=== PATIENT | female | born 1940 | race Hispanic/Latino ===

== ENCOUNTER 2020-05-30 00:19 | Outpatient (CLI) | payer MEDICARE, MEDICAID, SELFPAY ==
[2020-05-30 18:50] LABS: SARS-CoV-2 RNA PCR Negative
== END 2020-05-30 00:20 | disposition home or self-care (01) ==
LOC: ANHCOVIDDT 00:20
PROVIDERS: Visit Provider Specialist
DX: Z01.812 Encounter for preprocedural laboratory examination (principal); Z20.822 Contact with and (suspected) exposure to COVID-19
CPT/HCPCS: C9803; U0003

== ENCOUNTER 2020-06-02 00:12 | Day surgery (SDC) | payer MEDICARE, MEDICAID, SELFPAY ==
[2020-06-02] VITALS (8 sets, daily range): BP systolic 122–158; BP diastolic 53–80; PULSE 60–68; RESP 13–14; TEMP 36.4; O2SAT 97–98; BMI 32.4
--- NOTE | 2020-06-02 13:36 | SUR.PREOP ---
Patient arrives to [facility] via wheelchair from registration. Rod Finisher Radha with Status services used to obtain consent, patient's health history, and inform patient of plan of care. Patient verbalizes understanding, via sort operations supervisor, of procedure and plan of care. VS obtained. Site prepped per protocol. Karlos from [employer] at bedside to assess pacemaker. Patient verbalizes understanding. Will continue to monitor.
[2020-06-02 13:38] LABS: Basophils Absolute Auto 0.1 K/mm3 (0.0-0.1); Basophils Percent Auto 1.2 % (0.2-1.2); Eosinophils Absolute Auto 0.2 K/mm3 (0-0.3); Eosinophils Percent Auto 3.5 % (0-4.4); Hematocrit 44.9 % (37.0-47.0); Hemoglobin 14.7 g/dL (12.0-15.0); Immature Granulocyte Absolute 0.02 K/mm3 (0.00-0.031); Immature Granulocyte Percent A 0.3 % (0-0.5); Lymphocytes Absolute Auto 2.87 K/mm3 (0.9-3.2); Lymphocytes Percent Auto 41.8 % (18.3-44.2); Mean Corpuscular HGB Conc 32.7 g/dl (32-36); Mean Corpuscular Hemoglobin 30.1 pg (26-34); Monocytes Absolute Auto 0.4 K/mm3 (0.1-0.6); Neutrophils Absolute Auto 3.3 K/mm3 (1.3-6.7); Neutrophils Percent Auto 47.2 % (45.5-73.1); Platelet Count Result 209 k/mm3 (150-375); Red Blood Count 4.88 M/mm3 (4.2-5.4); Red Cell Distribution Width 13.5 % (11.5-14.5); White Blood Count 6.9 K/mm3 (4.5-10.0)
[2020-06-02 13:46] LABS: Prothrombin Time 13.7 Seconds (11.1-14.7)
[2020-06-02 13:47] LABS: Anion Gap 8 mmol/L (8-16); Blood Urea Nitrogen 18 mg/dL (7-17); Calcium 9.2 mg/dL (8.4-10.2); Carbon Dioxide 30 mmol/L (22-30); Chloride 103 mmol/L (98-107); Estimated Glomerular Filt Rate > 60; Glucose 98 mg/dL (65-105); Potassium 3.9 mmol/L (3.4-5.0); Sodium 141 mmol/L (137-145)
--- NOTE | 2020-06-02 13:48 | SUR.PREOP ---
H & P noted to be outdated (from 09/2017). Dr. Mackey notified and states he will complete an updated H & P today, prior to procedure this afternoon. Will continue to monitor.
--- NOTE | 2020-06-02 13:56 | PM.IMHP ---
H&P: HPI History of Present Illness Date/Time: 06/02/20 13:56 80 years old Citizen Of [place]-speaking lady with history of hypertension dyslipidemia sick sinus syndrome, is here for pacemaker generator change, she has history of pacemaker for sick sinus syndrome, she is not pacer dependent, was noted to have pacemaker at end of life, she will be admitted to the hospital for elective placement of new generator Chief Complaint: Fatigue Narrative: Kathryn Vera is a 80 year old female Meds Home Medications and Allergies Home Medications Medication Instructions Recorded Confirmed Type No Home Medications 06/02/20 06/02/20 History atorvastatin 40 mg PO DAILY 06/02/20 06/02/20 History meclizine 12.5 mg PO DAILY 06/02/20 06/02/20 History metoprolol succinate 50 mg PO DAILY 06/02/20 06/02/20 History Allergies Allergy/AdvReac Type Severity Reaction Status Date / Time No Known Allergies Allergy Verified 06/02/20 13:12 Vital Signs Vital Signs - 24 hr 06/02/20 13:00 Temperature 36.4 C Pulse Rate 68 Respiratory Rate 13 Blood Pressure 150/53 H Pulse Oximetry 97 Exam Narrative: Exam Narrative: Awake alert oriented x3 not in acute distress Neck is supple no obvious JVD, no carotid bruit Chest: Good air entry bilaterally, lungs are clear to auscultation and percussion bilaterally Cardiovascular: Regular rate and rhythm, 2/6 systolic murmur noted left sternal border Abdomen: Soft nontender bowel sounds positive Extremities: No edema has good pulses distally bilaterally H&P: Results Labs Labs: Short CBC 06/02/20 Range/Units 13:26 WBC 6.9 (4.5-10.0) K/mm3 Hgb 14.7 (12.0-15.0) g/dL Hct 44.9 (37.0-47.0) % Plt Count 209 (150-375) k/mm3 BMP 06/02/20 13:26 Sodium 141 Potassium 3.9 Chloride 103 Carbon Dioxide 30 BUN 18 H Creatinine 0.60 L Glucose 98 Calcium 9.2 Assessment and Plan Assessment and plan (1) Pacemaker at end of battery life: Code(s): Z45.010 - Encounter for checking and testing of cardiac pacemaker pulse generator [battery] Status: Acute Assessment and Plan: Will plan for generator change today, procedure discussed with the patient in the office through translation with her family, she understand procedure she is okay with now (2) Sick sinus syndrome: Code(s): I49.5 - Sick sinus syndrome Status: Acute
--- NOTE | 2020-06-02 13:58 | WPDMODSED ---
Moderate Sedation Note-Pt Data Patient Data Allergies Allergy/AdvReac Type Severity Reaction Status Date / Time No Known Allergies Allergy Verified 06/02/20 13:12 Home Medications Medication Instructions Recorded Confirmed Type No Home Medications 06/02/20 06/02/20 History atorvastatin 40 mg PO DAILY 06/02/20 06/02/20 History meclizine 12.5 mg PO DAILY 06/02/20 06/02/20 History metoprolol succinate 50 mg PO DAILY 06/02/20 06/02/20 History Sedation/Anesthesia: No previous sedation/anesthesia problems (including family history). Mod Sed Physical Exam Physical Exam Pre Procedural Exam: Normal: Appearance, Eyes, Ears, Nose, Neck, Throat, Airway, Lungs, Heart Size, Heart Rate, Heart Rhythm, Neuro Exam, Abdomen, Liver, Kidneys, Spleen, Breasts, Genitalia, Extremities and Skin Hours since solid foods: 8 Hours since liquid intake: 8 Internal Medicine - PN: Obj Da Vital Signs Vital Signs: Vital Signs - 24 hr 06/02/20 13:00 Temperature 36.4 C Pulse Rate 68 Respiratory Rate 13 Blood Pressure 150/53 H Pulse Oximetry 97 Labs CBC & Chem 7: 06/02/20 13:26 06/02/20 13:26 Labs: Laboratory Results - last 24 hr 06/02/20 06/02/20 06/02/20 13:26 13:26 13:26 WBC 6.9 RBC 4.88 Hgb 14.7 Hct 44.9 MCV 92.0 MCH 30.1 MCHC 32.7 RDW 13.5 Plt Count 209 MPV 11.0 H Immature Gran % (Auto) 0.3 Neut % (Auto) 47.2 Lymph % (Auto) 41.8 [place] % (Auto) 6.0 Eos % (Auto) 3.5 Baso % (Auto) 1.2 Lymph # (Auto) 2.87 [place] # (Auto) 0.4 Eos # (Auto) 0.2 Baso # (Auto) 0.1 Abs Immat Gran (auto) 0.02 Absolute Neuts (auto) 3.3 Absolute Nucleated RBC 0.0 Nucleated RBC % 0.0 PT 13.7 INR 1.0 Sodium 141 Potassium 3.9 Chloride 103 Carbon Dioxide 30 Anion Gap 8 BUN 18 H Creatinine 0.60 L Estim Creat Clear Calc Not Reportable Estimated GFR > 60 Glucose 98 Calcium 9.2 ASA Classification/Sedation ASA Classification/Sedation ASA Class: II Risks: Risks, benefits and alternatives explained and patient/family accepted plan for sedation. Patient re-evaluated immediately prior to sedation.
--- NOTE | 2020-06-02 15:11 | WPDCARDPROC ---
Cardiac Cath Procedure Note Date of procedure:: 06/02/20 Performing physician:: Bruce Mackey MD DATE OF POCEDURE: June 02, 2020 PROCEDURE: 1. Permanent Dual Chamber Pacemaker Generator change 2. Pocket revision 3. Conscious sedation starting time is 2:40 PM ending time is 3:10 PM. BRIEF HISTORY/REASON FOR PROCEDURE: Device is at [place] History: 80-year-old lady with history of pacemaker placement for sick sinus syndrome, noted to have pacemaker at end of life, was brought for elective replacement PROCEDURE: After obtaining informed consent, the patient was premedicated and transferred to the Cardiac Bi Application Developer. The upper chest was prepped and draped in sterile fashion. 1% xylocaine was used to create an area of local anesthesia in the second and third intercostal space. An incision was made over the old incision line. Blunt and sharp dissections were used to expose the existing pacemaker and leads. The electrodes ([employer] model 5076-52, serial # [id number] and [employer] model 5076-45, serial # [id number] were disconnected from the old pulse generator ([employer] model Adapta L DR, serial # [id number] all implanted 04/13/2008) and measurements were performed. Atrial measurements were: Voltage threshold: 0.5 Volts at 0.5 msec Lead impedance: 480 ohms P wave amplitude: 2.5 mV Right Ventricular measurements were: Voltage threshold: 0.5 Volts at 0.5msec Lead impedance: 544 ohms R wave amplitude: Paced The electrodes were interfaced with a [employer] Eskridge XT MRI DR pulse generator, serial number [id number], which was programmed to the following parameters: The pacemaker was placed into the pocket and noted to be pacing and sensing in normal fashion. The pocket was irrigated with Ancef solution. A [employer] Tyrx was also placed around the device, lot# [id number]. The subcutaneous tissue was closed using 2.0 Vicryl and the skin was closed with javed. The wound was covered with Aquacel and gauze bandage and adhesive tape were placed. The patient tolerated the procedure well with minimal blood loss. she tolerated the procedure well no complication, was taken from the garage laborer to her room in stable condition with stable vital signs The patient will return in 1 week for a wound check.
--- NOTE | 2020-06-02 18:03 | SUR.PHASEII ---
Entry for 0420- Video senior php web developer used to review D/C instructions with patient and son present via phone. All follow ups and instructions reviewed. All questions answered. PIV D/C'd. Pt D/C to home via wheelchair.
== END 2020-06-02 17:40 | disposition home or self-care (01) ==
PROVIDERS: Visit Provider Specialist
DX: Z45.010 Encounter for checking and testing of cardiac pacemaker pulse generator [battery] (principal); I49.5 Sick sinus syndrome; I10 Essential (primary) hypertension; E78.5 Hyperlipidemia, unspecified; R53.83 Other fatigue
CPT/HCPCS: 33227; 36415; 80048; 85025; 85610; C1785; J0690; J2250; J3010; J7040

== ENCOUNTER 2020-09-06 14:16 | Outpatient (CLI) | payer MEDICARE, MEDICAID, SELFPAY | END 2020-09-06 14:17 | disposition home or self-care (01) | LOC: ANHAUDIO 14:18 | DX: H90.3 Sensorineural hearing loss, bilateral (principal) | CPT/HCPCS: 92553; 92555; 92567 ==

== ENCOUNTER 2020-09-28 13:57 | Outpatient (RCR) | payer MEDICAID, SELFPAY | END 2020-09-28 23:59 | disposition home or self-care (01) | LOC: ANHAUDIO 13:57 | DX: Z46.1 Encounter for fitting and adjustment of hearing aid (principal) | CPT/HCPCS: V5160; V5261 ==

== ENCOUNTER 2025-04-09 13:37 | Outpatient (CLI) | payer OTHER, SELFPAY | END 2025-04-09 13:38 | disposition home or self-care (01) | LOC: ANHAUDIO 13:37 | PROVIDERS: Visit Provider Midwife | DX: H90.3 Sensorineural hearing loss, bilateral (principal) | CPT/HCPCS: 92553; 92567 ==